=== PATIENT | male | born 1955 | race Caucasian/White ===

== ENCOUNTER 2020-03-02 01:05 | Inpatient (IN) | payer MEDICAID ==
[~2020-03-02] VITALS: Ht 167.6 cm; Wt 88.5 kg
--- NOTE | 2020-03-02 01:05 | NUR ---
PT BIBA FROM HOME FOR PSYCH EVAL. PER REPORT PT OFTEN WANDERS AROUND. NOTED FLIGHT OF IDEAS. PT AAOX2, VSS, RESPIRATIONS EVEN AND UNLABORED ON RA W/ NAD NOTED. PT CONNECTED TO THE MONITOR AND POX.
--- NOTE | 2020-03-02 01:25 | NUR ---
BLOOD COLLECTED AND SENT TO LAB
[2020-03-02 01:29] LABS: BASOPHILS % (AUTO) 0.6 % (0.0-2.0); EOSINOPHILS % (AUTO) 0.9 % (0.0-6.0); HEMATOCRIT 43 % (39-51); LYMPHOCYTES # (AUTO) 1.2 /CMM (0.8-4.8); LYMPHOCYTES % (AUTO) 16.3 % (20.0-44.0); MEAN CORPUSCULAR HGB CONC 33 g/dl (31.0-36.0); MEAN CORPUSCULAR VOLUME 87 fL (80-96); MONOCYTES # (AUTO) 0.6 /CMM (0.1-1.30); MONOCYTES % (AUTO) 7.6 % (2.0-12.0); NEUTROPHILS # (AUTO) 5.7 /CMM (1.8-8.9); NEUTROPHILS % (AUTO) 74.6 % (43.0-81.0); PLATELET COUNT (AUTO) 193 /CMM (150-450); WHITE BLOOD COUNT (AUTO) 7.6 K/uL (4.3-11.0)
--- NOTE | 2020-03-02 01:29 | NUR ---
NATALIA (SON) CONTACT INFORMATION: [phone]
--- NOTE | 2020-03-02 01:33 | NUR ---
OFFICER SPEAKING WITH PATIENT'S SON
--- NOTE | 2020-03-02 01:53 | NUR ---
LAB CALLED FOR COVID POSITIVE RESULTS.
[2020-03-02 01:58] LABS: ACETAMINOPHEN < 10 ug/ml (10-30); ALANINE AMINOTRANSFERASE 42 U/L (12-78); ALBUMIN 3.5 g/dL (3.4-5.0); ALKALINE PHOSPHATASE 121 U/L (46-116); ASPARTATE AMINOTRANSFERASE 21 U/L (15-37); BILIRUBIN,DIRECT 0.1 mg/dL (0.0-0.2); BILIRUBIN,TOTAL 0.1 mg/dL (0.2-1.0); CALCIUM, SERUM 8.5 mg/dL (8.5-10.1); CARBON DIOXIDE 25 mmol/L (21-32); CHLORIDE 103 mmol/L (98-107); CREATININE 0.7 mg/dL (0.6-1.3); GLUCOSE 230 mg/dL (74-106); POTASSIUM 4.2 mmol/L (3.5-5.1); SODIUM SERUM 137 mmol/L (136-145); TOTAL PROTEIN, SERUM 7.2 g/dL (6.4-8.2); UREA NITROGEN, BLOOD 15 mg/dL (7-18)
[2020-03-02 02:07] LABS: ALCOHOL, BLOOD < 3 mg/dL (0-0)
[2020-03-02] MEDS ORDERED: ONDANSETRON HCL/PF 4 MG/2 ML VIAL IVP PRN (02:30)
[2020-03-02] MEDS ORDERED: ONDANSETRON 4 MG TAB.RAPDIS SL PRN (02:30)
--- NOTE | 2020-03-02 02:44 | NUR ---
BED ASSIGNMENT 200
--- NOTE | 2020-03-02 02:47 | NUR ---
REPORT GIVEN TO SANDY HOOKS FOR LEROY
[2020-03-02] MEDS ORDERED: LORAZEPAM INJ 2 MG/ML VIAL ONE ×2 (02:53→03:00)
[2020-03-02] MEDS ORDERED: LORAZEPAM INJ 2 MG/ML VIAL IM ONE ×2 (03:00→22:00)
[2020-03-02] MEDS ORDERED: LORAZEPAM INJ 2 MG/ML VIAL IV ONE (03:00)
[2020-03-02] MEDS ORDERED: ALBUTEROL FS 2.5 MG/3 ML VIAL.NEB NEB PRN (03:30)
--- NOTE | 2020-03-02 03:59 | NUR ---
PATIENT TAKEN TO ASSIGNED ROOM FOR LEROY.
[2020-03-02 04:00] VITALS: BP 141/76
--- NOTE | 2020-03-02 04:10 | NUR ---
MS/NEUROLOGY PHYSICIAN NOTE Patient arrived at 0410 via gurney from ER. VS: BP 141/76 T98.9 P90 R20 [id number]% on room air. A/O x2, with flight of ideas. No JVD. Tongue midline, no tracheal deviation. CRP <3seconds. Brachial and pedal pulses 2+, symmetrical. Breathing even, clear, unlabored, no acute distress or SOB. PERRLA. Mucous membranes moist and pink. Lips intact. Skin warm, pink, dry, appropriate for ethnicity. IV site LAC 22g saline locked, patent and intact. No signs of redness or infiltration. Abdomen large, round, soft, non-tender. BS active. Patient is continent. Last BM was 03/02. Urine output clear, yellow, without difficulty. Sensations intact in all extremities. Full ROM achieved in all extremities, slunk skinner strength 5+. Patient has been oriented to room. Valuable and belongings documented. Bed in low position, bed alarm on, wheels locked, side rails up x2, call light within reach.
--- NOTE | 2020-03-02 06:39 | NUR ---
MS/RN CLOSING NOTE Patient is A/O x2, confused with flight of ideas. Breathing even, clear, unlabored, no acute distress or SOB. PERRLA. Skin warm, pink, dry, appropriate for ethnicity. IV site LAC 22g saline locked, patent and intact. No signs of redness or infiltration. Abdomen large, round, soft, non-tender. BS active. Patient is continent. Last BM was 03/02. Urine output clear, yellow, without difficulty. Sensations intact in all extremities. Bed in low position, bed alarm on, wheels locked, side rails up x2, call light within reach.
--- NOTE | 2020-03-02 07:39 | NUR ---
MS RN NOTES RECEIVED PT AWAKE, AMBULATORY, AGITATED STATING WANTS TO GO HOME AND DOESN'T WANT TO STAY IN THE HOSPITAL. PT INSISTING AND BY HI DOOR ARGUING WITH STAFFS. PT TOLERATING RA, WITH NO ACUTE RESPIRATORY DISTRESS NOTED. PT DENIES ANY PAIN OR DISCOMFORT JUST WANTED TO GO HOME. PIV LAC G22, NOT FLUSHED, PT REFUSED TO DO ANYTHING WITH HIM AT THIS TIME. PT REASSURED AND ENCOURAGED TO STAY CALM UNTIL THE DOCTORS COME AND EVALUATE HIM. WILL CONTINUE PLAN OF CARE.
[2020-03-02] MEDS: ENOXAPARIN SODIUM 40 MG/0.4 ML DISP.SYRIN SQ SCH (08:40)
--- NOTE | 2020-03-02 13:11 | NUR ---
RN NOTES SEEN BY ESSIE/SOURAV/. ORDERS PLACED BY AND CARRIED OUT.
[2020-03-02] MEDS: busPIRone 5 MG TABLET PO SCH ×2 (13:14→16:12)
[2020-03-02] MEDS: risperiDONE 1 MG TABLET PO SCH (16:12)
--- NOTE | 2020-03-02 19:02 | NUR ---
RN NOTES PT REMAINS RECEIVED PT AWAKE, AMBULATORY, DURING CHANGE OF SHIFT PT SEEN WITH AOC OPERATIONS INTELLIGENCE CHIEF AND LOCKED HIMSELF TO THE BATHROOM, SECURITY CAME AND ADDRESS THE ISSUEPT TOLERATING RA, WITH NO ACUTE RESPIRATORY DISTRESS NOTED. PT DENIES ANY PAIN OR DISCOMFORT JUST WANTED TO GO HOME. PIV LAC G22, NOT FLUSHED, PT REFUSED TO DO ANYTHING WITH HIM. NEEDS ATTENDED. CALL LIGHT KEPT WITHIN REACH. WILL CONTINUE PLAN OF CARE.
[2020-03-02] MEDS: LORAZEPAM 1 MG TABLET PO PRN (19:52)
--- NOTE | 2020-03-02 19:55 | NUR ---
MS2/RN PATIENT IS VERY AGITATED, COMBATIVE, GETTING OUT OF THE ROOM, PATIENT IS COVID-19 POSITIVE, ATIVAN 1 MG PO WAS GIVEN ORDERED. WILL MONITOR. IF MED INEFFECTIVE, WILL CALL AND INFORM DR. BENJAMIN FOR ORDER.
[2020-03-02 20:00] VITALS: BP 159/103
--- NOTE | 2020-03-02 20:32 | NUR ---
MS2/RN PATIENT IS STILL AGITATED, DOES NOT WANT TO GET INTO THE ROOM, NON STOP TALKING, MADE A CALL TO DR. BENJAMIN, LEFT MESSAGE. CALLED FUSE CUTTER, WHO CAME AND ESCORTED THE PATIENT TO THE ROOM.
--- NOTE | 2020-03-02 21:52 | NUR ---
MS2/RN PATIENT STILL AGITATED AND UNCONTROLLABLE BEHAVIOR, MADE A FOLLOW UP CALL TO DR. BENJAMIN, INFORMED HIM OF THE PATIENT'S PRESENT BEHAVIOR, WITH ORDER OF ZYPREXA 5 MG IM X1 AND ATIVAN 1 MG IM X1, WAS RECEIVED.
[2020-03-02] MEDS ORDERED: OLANZAPINE 10 MG VIAL IM ONE (22:00)
--- NOTE | 2020-03-02 22:00 | NUR ---
MS2/RN ZYPREXA IM AND ATIVAN IM ORDERED BY DR. BENJAMIN WERE NOT ADMINISTERED AT THIS TIME THE PATIENT IS ALREADY SLEEP. WILL GIVE WHEN THE PATIENT WAKES UP AND IF STILL AGITATED. WILL CONTINUE TO MONITOR.
[2020-03-03] VITALS: BP 166/97
[2020-03-03] MEDS: ACETAMINOPHEN 325 MG TABLET PO PRN (02:21)
--- NOTE | 2020-03-03 02:23 | NUR ---
MS2/RN PATIENT IS AWAKE, C/O HEAD ACHE, ASKED FOR TYLENOL, TYLENOL 650 MG PO WAS GIVEN ORDERED. WILL MONITOR.
--- NOTE | 2020-03-03 02:24 | NUR ---
MS2/RN CRTTS ATTEMPTED TO GET THE VITAL SIGNS BUT PATIENT REFUSE, PATIENT STILL REFUSED TELE BOX WELL. PATIENT REFUSED THE VITAL SIGNS AND TELE BOX AT 1999 LAST NIGHT.
[2020-03-03 04:00] VITALS: BP 128/69
--- NOTE | 2020-03-03 04:29 | NUR ---
PT WANTS TO SMOKE; NEW ORDER FOR NICOTINE PATCH RECIVED PT ASKING TO GO OUTSIDE TO SMOKE. PT INFORMED HOSPITAL IS NON SMOKING. PT REQUESTING NICOTINE PATCH. STATES HE SMOKES 1 CIGARETTE A DAY. PEARL KWON NP CONTACTED AND INFORMED PT REQUESTING NICOTINE PATCH. NEW ORDER FOR NICOTINE PATCH RECIEVED.
[2020-03-03] MEDS: NICOTINE PATCH (7MG) 7 MG PATCH.TD24 TD SCH ×2 (05:09→08:55)
--- NOTE | 2020-03-03 05:54 | NUR ---
MS2/RN PATIENT IS AWAKE, CALM NOW AND COMFORTABLE, AGREED TO HAVE VITAL SIGNS TAKEN, AGREE TO HAVE THE TELE MONITOR ON.
--- NOTE | 2020-03-03 07:28 | NUR ---
QA AUTOMATION ARCHITECT NOTES PATIENT IS AMBULATORY STANDING OUTSIDE HIS ROOM WHEN CHANGE OF SHIFT. A/O X 3. NO SIGNS OF DISTRESS IN ROOM AIR. IV L AC#22G L PATIENT DID NOT LET ME CHECK THE IV PATENCY. TELE WAS NOT ON, REFUSES TO HAVE THE TELE MONITOR ON. NO COMPLAIN OF PAIN AT THIS TIME. INFORMED PATIENT THAT HE NEEDS TO BE BACK IN HIS ROOM. SAFETY MEASURES ARE APPLIED. BED IS IN LOWEST LOCKED POSITION WITH SIDE RAILS UP X 2 FOR SAFETY. CALL LIGHT IS WITHIN REACH. WILL CONTINUE TO MONITOR.
[2020-03-03 08:00] VITALS: BP 142/93
[2020-03-03] MEDS: risperiDONE 1 MG TABLET PO SCH ×2 (08:55→17:30)
[2020-03-03] MEDS: busPIRone 5 MG TABLET PO SCH ×3 (08:55→17:30)
[2020-03-03] MEDS: ENOXAPARIN SODIUM 40 MG/0.4 ML DISP.SYRIN SQ SCH (08:56)
--- NOTE | 2020-03-03 08:57 | NUR ---
PATIENT REFUSED BLOOD DRAW AFTER SECOND ATTEMPT AND REFUSED LOVENOX. EDUCATED THE RISKS OF BENEFITS AND HE STILL REFUSED BOTH BLOOD DRAW AND LOVENOX.
[2020-03-03] MEDS: LORAZEPAM 1 MG TABLET PO PRN (09:37)
--- NOTE | 2020-03-03 09:40 | NUR ---
PATIENT AGITATED COMING OUT FROM HIS ROOM AGITATED. GAVE ATIVAN PRN SCHEDULED. NO SIGNS OF DISTRESS, WILL CONTINUE TO MONITOR.
--- NOTE | 2020-03-03 09:42 | NUR ---
SECURITY WAS CALLED. PATIENT REFUSED TO BACK TO HIS ROOM.
--- NOTE | 2020-03-03 11:53 | NUR ---
PATIENT CONTINUES TO BE AGITATED COMING OUT FROM HIS ROOM . SECURITY WAS CALLED AND CALLED DR. MALONEY ORDERED ATIVAN AND ZYPREXA IM ONE TIME. NOTED AND CARRIED OUT. WILL CONTINUE TO MONITOR.
[2020-03-03 12:00] VITALS: BP 127/69
[2020-03-03] MEDS ORDERED: OLANZAPINE 10 MG VIAL IM ONE (12:00)
[2020-03-03] MEDS ORDERED: LORAZEPAM INJ 2 MG/ML VIAL IM ONE (12:00)
--- NOTE | 2020-03-03 12:15 | NUR ---
UNABLE TO ADMINISTER MEDICATION ZYPREXA AND ATIVAN IM ONCE PATIENT WAS AGITATED AND REFUSING MEDICATION. MEDICATION WAS WASTED IN MED ROOM WITH SECOND RN FOR WITNESS. LUKAS DELGADO SECOND WITNESS. WILL CONTINUE TO MONITOR.
--- NOTE | 2020-03-03 12:40 | NUR ---
3RD ATTEMPT FOR BLOOD DRAW PATIENT REFUSED.
[2020-03-03] MEDS ORDERED: OLANZAPINE 10 MG VIAL IM PRN (13:30)
[2020-03-03 16:00] VITALS: BP 140/85
[2020-03-03 16:00] LABS: BASOPHILS % (AUTO) 0.7 % (0.0-2.0); HEMATOCRIT 42 % (39-51); HEMOGLOBIN 13.7 g/dL (13.5-17.5); LYMPHOCYTES # (AUTO) 1.3 /CMM (0.8-4.8); MEAN CORPUSCULAR HGB CONC 33 g/dl (31.0-36.0); MEAN CORPUSCULAR VOLUME 86 fL (80-96); MONOCYTES # (AUTO) 0.7 /CMM (0.1-1.30); MONOCYTES % (AUTO) 14.1 % (2.0-12.0); NEUTROPHILS # (AUTO) 2.9 /CMM (1.8-8.9); NEUTROPHILS % (AUTO) 57.2 % (43.0-81.0); PLATELET COUNT (AUTO) 177 /CMM (150-450); RED BLOOD CELL COUNT(AUTO) 4.89 MIL/uL (4.5-6.0); WHITE BLOOD COUNT (AUTO) 5.1 K/uL (4.3-11.0)
[2020-03-03 16:16] LABS: ALBUMIN 3.2 g/dL (3.4-5.0); BILIRUBIN,TOTAL 0.2 mg/dL (0.2-1.0); C-REACTIVE PROTEIN 0.8 mg/dL (0.0-0.9); CALCIUM, SERUM 8.7 mg/dL (8.5-10.1); CREATININE 0.7 mg/dL (0.6-1.3); POTASSIUM 3.9 mmol/L (3.5-5.1); TOTAL PROTEIN, SERUM 6.7 g/dL (6.4-8.2)
--- NOTE | 2020-03-03 16:40 | NUR ---
LACTIC ACID 2.5 JAKE MINER IS AWARE NO NEW ORDERS AT THIS TIME WILL CONTINUE TO MONITOR.
--- NOTE | 2020-03-03 19:21 | NUR ---
HEMSTITCHING MACHINE OPERATOR CLOSING NOTES A/O X 3. NO SIGNS OF DISTRESS IN ROOM AIR. IV L AC#22G PATIENT DID NOT LET ME CHECK THE IV PATENCY. TELE WAS NOT ON, REFUSES TO HAVE THE TELE MONITOR ON. NO COMPLAIN OF PAIN AT THIS TIME. PATIENT REMAINED STABLE THROUGH OUT SHIFT. PATIENT KEPT CLEAN AND DRY. ALL NEEDS, CARE, TREATMENT AND MEDICATIONS ADMINISTERED ANTICIPATED PER ORDER. SAFETY MEASURES ARE APPLIED. BED IS IN LOWEST LOCKED POSITION WITH SIDE RAILS UP X 2 FOR SAFETY. CALL LIGHT IS WITHIN REACH. WILL ENDORSE TO THE COWLMAN NURSE.
[2020-03-03 20:00] VITALS: BP 155/87
--- NOTE | 2020-03-03 20:00 | NUR ---
MS RN NOTE: Patient in bed sleeping but easily aroused. Patient breathing even and unlabored, no SOB or acute respiratory distress noted. Patient uncooperative. Patient removed monitor worker previous shift but asked if I can put it back, patient refused. Patient IV access left AC 22 gauge, patient refused flush. Patient refused physical assessment. Safety precaution in place, bed is in the lowest level, bed is locked, alarm is on, side rails x2 are up, and call light is within reach. Will continue to monitor.
[2020-03-04] VITALS: BP 149/81
[2020-03-04 04:00] VITALS: BP 154/94
--- NOTE | 2020-03-04 07:30 | NUR ---
E COMMERCE SPECIALIST NOTES PT AWAKE, ALERT AND ORIENTED, AMBULATORY IN HIS ROOM, NO COMPLAINT OF PAIN OR ANY DISCOMFORT, RESPIRATIONS NORMAL, ON ROOM AIR, COMPLIANT WITH MEDS, NEEDS ATTENDED, VERBALIZED THAT HE WANTS TO GO HOME BECAUSE HE HAS WORK TODAY.
[2020-03-04 08:00] VITALS: BP 144/89
[2020-03-04] MEDS: NICOTINE PATCH (7MG) 7 MG PATCH.TD24 TD SCH (08:36)
[2020-03-04] MEDS: risperiDONE 1 MG TABLET PO SCH ×2 (08:37→16:28)
[2020-03-04] MEDS: busPIRone 5 MG TABLET PO SCH ×3 (08:37→16:28)
[2020-03-04] MEDS: ENOXAPARIN SODIUM 40 MG/0.4 ML DISP.SYRIN SQ SCH (08:44)
[2020-03-04 12:00] VITALS: BP 131/82
--- NOTE | 2020-03-04 12:43 | NUR ---
CONTROL AND RECOVERY COMBAT RESCUE NOTES PT AWAKE, SITTING IN BED, AWAKE, ALERT, AMBULATES WITH STEADY GAIT, COMPLIANT WITH MEDS, IV LINE ACCIDENTALLY PULLED OUT, OFFERED TO RESTART IV LINE, PT REFUSED FOR NOW, PT ALSO REFUSES TO BE TELE MONITORING BOX, NEEDS ATTENDED.
[2020-03-04 16:00] VITALS: BP 158/88
--- NOTE | 2020-03-04 18:41 | NUR ---
FERRY HAND NOTES PT IN BED, ASLEEP, EASY TO AROUSE, ALERT AND ORIENTED, NO COMPLAINT AT THIS TIME, NOT IN DISTRESS, COMPLIANT WITH MEDS, SEEN BY DR. JOSEPH, PT REFUSED IV REINSERTION AND TELE BOX MONITORING, MD AWARE, PT AMBULATES WITH STEADY GAIT TO THE BATHROOM, TOLERATES CURRENT DIET, NEEDS ATTENDED.
--- NOTE | 2020-03-04 19:05 | NUR ---
pit furnace operator notes received patient in bed sleeping easily arousable, awake alert and oriented x 3, respirations even and unlabored with equal rise and fall of chest,denies any pain or discomfort at this time,refuses court recording monitor and iv site despite education. oriented to staff and call light and kept within reach, safety precautions rendered low bed and locked, all needs attended at this time, will continue to monitor.
[2020-03-04 20:00] VITALS: BP 163/98
--- NOTE | 2020-03-04 20:10 | NUR ---
hospital internship notes noted 1999 vs at 163/98, hr 87. attempted to reassess blood pressure for accurate reading patient refused x 3 despite risks and benefit and education, stated " no im okay leave me alone i want to sleep". no distress present, will continue to monitor and attempt to reassess blood pressure.
[2020-03-05] VITALS (8 sets, daily range): BP systolic 128–165; BP diastolic 77–87
--- NOTE | 2020-03-05 00:16 | NUR ---
sports broadcasting internship notes blood pressure reassessed noted 165/87, hr 66. made patient aware of elevated blood pressure. states " i feel good". educated patient. hospitalist made aware flavia, new orders noted and read back for clonidine 0.1mg q8hr prn sbp above 160.
[2020-03-05] MEDS ORDERED: CLONIDINE HCL 0.1 MG TABLET PO PRN (00:30)
--- NOTE | 2020-03-05 06:22 | NUR ---
project coordinator rn closing notes patient in bed awake alert and oriented x 3, respirations even and unlabored with equal rise and fall of chest,denies any pain or discomfort at this time,refuses quality assurance monitor refused skin assessments and iv site despite education. call light kept within reach, safety precautions rendered low bed and locked, snacks, fluids and toileting offered, all needs attended at this time, will continue to monitor and endorse to next shift.
--- NOTE | 2020-03-05 07:30 | NUR ---
CELLO TEACHER NOTES PATIENT RECEIVED IN BED, AWAKE, ALERT AND ORIENTED X 3. PATIENT ON ROOM AIR WITH NO SIGNS OF RESPIRATORY DISTRESS AT THIS TIME, WITH EVEN NON-LABORED BREATHING. PATIENT PRESENTS WITH NO SIGNS OF PAIN OR DISCOMFORT AT THIS TIME. PATIENT REFUSING IV ACCESS AT THIS TIME, MD AWARE. PATIENT ALSO REFUSING FIELD HOCKEY AND LACROSSE COACH. PATIENT REFUSING SKIN ASSESSMENT AT THIS TIME. ISOLATION PRECAUTIONS REMAINING, DUE TO COVID-19. SAFETY PRECAUTIONS IMPLEMENTED WITH BED LOCKED, BED IN THE LOWEST POSITION, BILATERAL SIDE RAILS UP AND CALL LIGHT WITHIN EASY REACH OF THE PATIENT. WILL CONTINUE TO MONITOR PATIENT.
[2020-03-05] MEDS: ENOXAPARIN SODIUM 40 MG/0.4 ML DISP.SYRIN SQ SCH (09:03)
[2020-03-05] MEDS: busPIRone 5 MG TABLET PO SCH ×3 (09:04→16:25)
[2020-03-05] MEDS: risperiDONE 1 MG TABLET PO SCH ×2 (09:04→16:25)
[2020-03-05] MEDS: NICOTINE PATCH (7MG) 7 MG PATCH.TD24 TD SCH (09:07)
[2020-03-05] MEDS ORDERED: ALBUTEROL SULFATE 8 GM HFA.AER.AD IH PRN (10:00)
[2020-03-05] MEDS ORDERED: DEXTROSE 50%-WATER 50 ML DISP.SYRIN IV PRN (13:00)
[2020-03-05] MEDS: BLOOD SUGAR DIAGNOSTIC 1 EACH STRIP IN SCH ×2 (16:39→22:02)
--- NOTE | 2020-03-05 16:39 | NUR ---
INFORMATION SCIENTIST NOTES PATIENT'S BLOOD SUGAR 163, PER SLIDING SCALE PROTOCOL, 3 UNITS OF INSULIN NEEDED TO BE ADMINISTERED, PATIENT REFUSED INSULIN, EDUCATED THE IMPORTANCE AND BENEFITS OF MEDICATION MULTIPLE TIMES, PATIENT KEPT REFUSING. WILL CONTINUE TO MONITOR PATIENT.
--- NOTE | 2020-03-05 18:32 | NUR ---
OBJECTIVE C DEVELOPER NOTES PATIENT IN BED RESTING COMFORTABLY, ALERT AND ORIENTED X 3. PATIENT ON ROOM AIR WITH NO SIGNS OF RESPIRATORY DISTRESS WITH EVEN NON-LABORED BREATHING, AND NO SOB NOTED AT THIS TIME. PATIENT REFUSING BRUSH MACHINE SETTER AT THIS TIME. PATIENT SKIN KEPT CLEAN AND DRY, NO IV ACCESS MD AWARE. PATIENT KEPT REFUSING LABS TO BE DRAWN. EDUCATED THE IMPORTANCE AND PATIENT KEPT REFUSING. PATIENT PRESENTING WITH NO PAIN OR DISCOMFORT AT THIS TIME. MET ALL OF PATIENT'S NEEDS. SAFETY PRECAUTIONS IMPLEMENTED WITH BED LOCKED, BED IN THE LOWEST POSITION, BILATERAL SIDE RAILS UP, CALL LIGHT WITHIN EASY REACH, AND WILL ENDORSE PLAN OF CARE TO UPCOMING RN.
--- NOTE | 2020-03-05 20:04 | NUR ---
MS/RN OPENING NOTE Patient awake in bed, A/O x2-3, calm, ambulatory. Patient refused tele monitor at this time. No JVD. Tongue midline, no tracheal deviation. CRP <3seconds. Brachial and pedal pulses 2+, symmetrical. Breathing even, clear, unlabored, no acute distress or SOB. Skin warm, pink, dry, appropriate for ethnicity. Patient refused IV access. Abdomen large, round, soft, non-tender. BS active. Patient is continent. Urine output clear, yellow, without difficulty. Bed in low position, bed alarm on, wheels locked, side rails up x2, call light within reach.
[2020-03-05] MEDS: INSULIN REGULAR, HUMAN 100 UNIT/ML 3 ML VIAL SQ PRN (21:57)
[2020-03-06] VITALS: BP 135/92
--- NOTE | 2020-03-06 04:55 | NUR ---
TELE/RN NOTE Patient c/o constipation for 3 days. Hospitalist notified. New medication order received for Milk of Magnesia 30ml once PRN. Order verified. Will continue to monitor.
[2020-03-06] MEDS ORDERED: MAGNESIUM HYDROXIDE 30 ML UDC PO PRN (05:00)
[2020-03-06 05:01] VITALS: BP 150/96
--- NOTE | 2020-03-06 06:06 | NUR ---
TELE/RN OPENING NOTE Patient awake in bed, A/O x2-3, calm, ambulatory. Patient refused tele monitor at this time. Brachial and pedal pulses 2+, symmetrical. Breathing even, clear, unlabored, no acute distress or SOB. Skin warm, pink, dry, appropriate for ethnicity. Patient refused IV access. BS active. Patient is continent. Urine output clear, yellow, without difficulty. Bed in low position, bed alarm on, wheels locked, side rails up x2, call light within reach.
--- NOTE | 2020-03-06 06:07 | NUR ---
TELE/RN NOTE Patient refused morning labs. Hospitalist notified. Patient stated he wanted to go home. Will continue to monitor.
[2020-03-06] MEDS: BLOOD SUGAR DIAGNOSTIC 1 EACH STRIP IN SCH ×4 (06:47→21:22)
[2020-03-06 08:00] VITALS: BP 132/91
--- NOTE | 2020-03-06 08:00 | NUR ---
TELE/RN OPENING NOTE Patient awake in bed, A/O x2-3, calm, ambulatory. Patient has been refusing tele monitor and AM blood draw since last night inspite of explaining the risks and benefits. Brachial and pedal pulses 2+, symmetrical. Breathing even, clear, unlabored, no acute distress or SOB. Skin warm, pink, dry, appropriate for ethnicity. Patient refused IV access. BS active. Patient is continent with BRP. Urine output clear, yellow, without difficulty. Bed in low position, bed alarm on, wheels locked, side rails up x2, call light within reach.
[2020-03-06] MEDS: busPIRone 5 MG TABLET PO SCH ×3 (08:48→17:22)
[2020-03-06] MEDS: risperiDONE 1 MG TABLET PO SCH ×2 (08:48→17:24)
[2020-03-06] MEDS: ACETAMINOPHEN 325 MG TABLET PO PRN (08:48)
[2020-03-06] MEDS: NICOTINE PATCH (7MG) 7 MG PATCH.TD24 TD SCH (08:48)
[2020-03-06] MEDS: ENOXAPARIN SODIUM 40 MG/0.4 ML DISP.SYRIN SQ SCH ×2 (08:48→09:00)
--- NOTE | 2020-03-06 09:15 | NUR ---
pt refused lovenox inspite of explaining risks and benefits. Discarded open Lovenox in the medicine dispenser box as witnessed by co-RN,Seema.
[2020-03-06 12:00] VITALS: BP 111/71
[2020-03-06] MEDS: INSULIN REGULAR, HUMAN 100 UNIT/ML 3 ML VIAL SQ PRN (13:19)
--- NOTE | 2020-03-06 15:00 | NUR ---
PATIENT HAS BEEN REFUSING AM BLOOD DRAW,TELE MONITOR AND IV HEPLOCK INSERTION SINCE LAST NIGHT.NOTIFIED DR QUINONEZ AND MADE AWARE.
--- NOTE | 2020-03-06 15:03 | NUR ---
NICOL was notified by Field Kiln Burner Brielle regarding patient's family wanting the patient to be transferred to a psychiatric facility. NICOL contacted son Jez [phone] to verify this plan with patient's son and . Jez (son) reported that the patient does have a history of mental health and patient's and son would feel comfortable if the patient would be transferred to a psychiatric facility. NICOL informed patient's son that SW needs to confirm voluntary status with the patient when he is more alert and oriented. Patient's son in agreement to this plan. NICOL remains available for all needs regarding this patient.
[2020-03-06 16:00] VITALS: BP 122/86
--- NOTE | 2020-03-06 18:18 | NUR ---
PT WAS COMPLIANT WITH MEDS EXCEPT LOVENOX.PT REFUSED LAB DRAW,TELE MONITOR AND HEPLOCK INSERTION UP TO THIS TIME.PT WAS CALM IN HIS ROOM AND NO SI/HI AT THIS TIME.PT WANTING TO GO HOME AND EXPLAINED THAT HE STILL HAS TO STAY AND WAIT FOR DOCTOR'S DECISION TO DISCHARGE HIM.
--- NOTE | 2020-03-06 19:39 | NUR ---
UTILIZATION MANAGEMENT NURSE NOTES PATIENT IN BED, ASLEEP, ALERT AND ORIENTED X3. BREATHING EVEN AND UNLABORED ON ROOM AIR. SHOWS NO SIGNS OF ACUTE RESPIRATORY DISTRESS. NO ACUTE PAIN. PT REFUSED IV, MD AWARE. SAFETY PRECAUTIONS IN PLACE. BED IN LOWEST POSITION, LOCKED, AND WILL CONTINUE TO MONITOR.
[2020-03-06 20:00] VITALS: BP 137/76
[2020-03-07] VITALS: BP 141/76
[2020-03-07 04:00] VITALS: BP 122/87
[2020-03-07] MEDS: BLOOD SUGAR DIAGNOSTIC 1 EACH STRIP IN SCH ×4 (06:34→22:43)
[2020-03-07] MEDS: INSULIN REGULAR, HUMAN 100 UNIT/ML 3 ML VIAL SQ PRN ×2 (06:34→12:21)
--- NOTE | 2020-03-07 06:43 | NUR ---
PERMIT REVIEW ASSISTANT NOTES PATIENT IN BED, AWAKE, ALERT AND ORIENTED X3. BREATHING EVEN AND UNLABORED ON ROOM AIR. SHOWS NO SIGNS OF ACUTE RESPIRATORY DISTRESS. NO ACUTE PAIN. PT REFUSED IV, MD AWARE. REFUSED 0730 INSULIN COVERAGE. ALL DUE MEDICATIONS GIVEN. SAFETY PRECAUTIONS IN PLACE. BED IN LOWEST POSITION, LOCKED, AND WILL ENDORSE TO ONCOMING NURSE.
--- NOTE | 2020-03-07 07:30 | NUR ---
RN OPENING NOTE THE PATIENT IS RECEIVED IN BED. PATIENT IS ALERT AND ORIENTED X3. DENIES PAIN. IN ROOM AIR AND DENIES SOB. RESPIRATION REGULAR AND UNLABORED. PATIENT REFUSES TELE BOX AND PER PM SHIFT MD IS AWARE. ALSO, THE PATIENT DOES NOT HAVE AN IV LINE, REFUSES AND THE MD IS AWARE PER PM SHIFT. BED LOW AND LOCKED. SIDE RAILS UP X2. CALL LIGHT WITHIN REACH. WILL CONTINUE TO MONITOR.
[2020-03-07 08:00] VITALS: BP 158/94
[2020-03-07] MEDS: NICOTINE PATCH (7MG) 7 MG PATCH.TD24 TD SCH (08:55)
[2020-03-07] MEDS: busPIRone 5 MG TABLET PO SCH ×3 (08:55→17:34)
[2020-03-07] MEDS: risperiDONE 1 MG TABLET PO SCH ×2 (08:55→17:34)
[2020-03-07] MEDS: ENOXAPARIN SODIUM 40 MG/0.4 ML DISP.SYRIN SQ SCH (09:00)
--- NOTE | 2020-03-07 09:33 | NUR ---
RN REFUSED LOVENOX PATIENT REFUSED LOVENOX DUE AT 0900. EXPLAINED RISKS AND BENEFITS MULTIPLE TIMES BUT THE PATIENT STILL REFUSED.
--- NOTE | 2020-03-07 18:41 | NUR ---
RN CLOSING NOTE THE PATIENT IS ALERT AND ORIENTED X3. IN ROOM AIR AND OXYGEN SATURATION IS AT 97%. DENIES SOB. RESPIRATION REGULAR AND UNLABORED. DENIES PAIN. THE PATIENT IS IN NO APPARENT DISTRESS. PATIENT REFUSES TELE BOX AND IV ACCESS AND CHANNEL ROUGHER CRISTIANO IS AWARE. ALSO, CHANNEL ROUGHER CRISTIANO IS MADE AWARE THAT THE PATIENT REFUSED SCHEDULED LOVENOX DURING THE SHIFT. BED LOW AND LOCKED. SIDE RAILS UP X2. CALL LIGHT WITHIN REACH. WILL ENDORSE TO RIBBON LAPPER TENDER.
--- NOTE | 2020-03-07 19:30 | NUR ---
PEDIATRIC SPEECH LANGUAGE PATHOLOGIST OPENING NOTES PATIENT AWAKE AND SITTING IN CHAIR NEXT TO BEDSIDE. A/OX3. ON RA; NO S/S OF ACUTE RESPIRATORY DISTRESS; BREATHING IS EVEN AND UNLABORED. NO C/O PAIN AT THIS TIME. PATIENT REFUSING TO WEAR TELE MONITOR AND REFUSING IV ACCESS; PER DAY SHIFT RN MD AWARE. SAFETY MEASURES IN PLACE AND PATIENT'S NEEDS MET. BED LOCKED, SIDE RAILS X2, CALL LIGHT WITHIN REACH. WILL CONTINUE TO MONITOR.
[2020-03-07 20:00] VITALS: BP 116/76
[2020-03-08] VITALS: BP 120/60
[2020-03-08] MEDS: LORAZEPAM 1 MG TABLET PO PRN (01:21)
[2020-03-08 04:00] VITALS: BP 142/89
[2020-03-08] MEDS: BLOOD SUGAR DIAGNOSTIC 1 EACH STRIP IN SCH ×4 (06:24→21:58)
--- NOTE | 2020-03-08 07:07 | NUR ---
TUB PULLER CLOSING NOTES PATIENT AWAKE IN BED. A/OX3. ON RA; NO S/S OF ACUTE RESPIRATORY DISTRESS; BREATHING IS EVEN AND UNLABORED. NO C/O PAIN. PATIENT REFUSING TELE MONITOR AND IV ACCESS. SAFETY MEASURES IN PLACE AND PATIENT'S NEEDS MET. BED LOCKED, SIDE RAILS X2, CALL LIGHT WITHIN REACH. WILL ENDORSE TO DAY SHIFT RN PLAN OF CARE.
--- NOTE | 2020-03-08 07:24 | NUR ---
ms rn received on bed, awake,alert,oriented x3,not in any form of distress, respirations even and unlabored, no sob noted, lungs are clear,abdomen soft,positive bowel sounds, denies pain at this time, patient has no iv heplock, patient refused per weight shifter.no distress noted.
[2020-03-08 08:00] VITALS: BP 153/88
--- NOTE | 2020-03-08 08:50 | NUR ---
ms [place] breakfast served, due meds given, compliant w/ meds.
[2020-03-08] MEDS: busPIRone 5 MG TABLET PO SCH ×3 (09:14→17:56)
[2020-03-08] MEDS: risperiDONE 1 MG TABLET PO SCH ×2 (09:14→17:56)
[2020-03-08] MEDS: NICOTINE PATCH (7MG) 7 MG PATCH.TD24 TD SCH (09:15)
[2020-03-08] MEDS: ENOXAPARIN SODIUM 40 MG/0.4 ML DISP.SYRIN SQ SCH (09:21)
--- NOTE | 2020-03-08 12:30 | NUR ---
ms rn patient always come and wants to go home today, texted Milton luna, waiting for him to reply.
[2020-03-08] MEDS: INSULIN REGULAR, HUMAN 100 UNIT/ML 3 ML VIAL SQ PRN ×2 (12:52→21:30)
--- NOTE | 2020-03-08 16:00 | NUR ---
ms won luna came but no order for d/c today, maybe tomorrow.
--- NOTE | 2020-03-08 17:00 | NUR ---
ms rn patient refused blood sugar, really wants to go home, sleeping at this time.
--- NOTE | 2020-03-08 18:19 | NUR ---
ms rn on bed, no distress noted.
--- NOTE | 2020-03-08 19:15 | NUR ---
HOME CARE CHAPLAIN OPENING NOTES: RECEIVED PATIENT IN BED, ASLEEP. CALL LIGHT WITHIN REACH. BED IN LOWEST AND LOCKED POSITION.
[2020-03-08 20:00] VITALS: BP 127/82
[2020-03-09] VITALS: BP 128/81
[2020-03-09 04:00] VITALS: BP 125/92
--- NOTE | 2020-03-09 06:28 | NUR ---
SPEECH PROFESSOR CLOSING NOTES: PATIENT IN BED, AWAKE, A/O X3. NO S/S OF DISTRESS NOTED. NO COMPLAIN OF PAIN. AMBULATING INSIDE THE ROOM. CALL LIGHT WITHIN REACH. BED IN LOWEST AND LOCKED POSITION. REFUSED THE LAB DRAW THIS MORNING, TALKED TO THE PATIENT AND EXPLAINED, PATIENT STILL REFUSED, STATES" NOT NOW, LATER AFTER BREAKFAST". WILL ENDORSE TO THE NEXT SHIFT FOR FOLLOW UP .
[2020-03-09] MEDS: INSULIN REGULAR, HUMAN 100 UNIT/ML 3 ML VIAL SQ PRN ×2 (07:04→21:42)
[2020-03-09] MEDS: BLOOD SUGAR DIAGNOSTIC 1 EACH STRIP IN SCH ×4 (07:20→21:41)
--- NOTE | 2020-03-09 07:41 | NUR ---
AN/SQQ 89(V)15 SONAR SYSTEM JOURNEYMAN NOTE PATIENT IN BED RESTING COMFORTABLY. PATIENT IN NO ACUTE DISTRESS. NO SOB NOTED. PATIENT BREATHING IS EVEN AND UNLABORED. PATIENT REFUSING TELE MONITORING. PATIENT NOTED WITH NO IV ACCESS, PATIENT IS REFUSING IV ACCESS PER PM SHIFT. PATIENT HOB IS ELEVATED. PATIENT SAFETY PRECAUTIONS IN PLACE. PATIENT BED ALARM IS ON. PATIENT BED IS LOCKED AND IN LOWEST POSITION. CALL LIGHT WITHIN REACH. WILL CONTINUE TO MONITOR.
[2020-03-09 08:00] VITALS: BP 124/78
[2020-03-09] MEDS: busPIRone 5 MG TABLET PO SCH ×3 (08:32→16:27)
[2020-03-09] MEDS: NICOTINE PATCH (7MG) 7 MG PATCH.TD24 TD SCH (08:32)
[2020-03-09] MEDS: risperiDONE 1 MG TABLET PO SCH ×2 (08:32→16:27)
[2020-03-09] MEDS: ENOXAPARIN SODIUM 40 MG/0.4 ML DISP.SYRIN SQ SCH (08:34)
[2020-03-09 10:38] LABS: BASOPHILS % (AUTO) 0.5 % (0.0-2.0); EOSINOPHILS % (AUTO) 1.1 % (0.0-6.0); HEMATOCRIT 45 % (39-51); HEMOGLOBIN 14.8 g/dL (13.5-17.5); LYMPHOCYTES # (AUTO) 2.1 /CMM (0.8-4.8); LYMPHOCYTES % (AUTO) 36.9 % (20.0-44.0); MEAN CORPUSCULAR HGB CONC 33 g/dl (31.0-36.0); MEAN CORPUSCULAR VOLUME 85 fL (80-96); MONOCYTES # (AUTO) 0.5 /CMM (0.1-1.30); MONOCYTES % (AUTO) 8.2 % (2.0-12.0); NEUTROPHILS % (AUTO) 53.3 % (43.0-81.0); PLATELET COUNT (AUTO) 166 /CMM (150-450); RED BLOOD CELL COUNT(AUTO) 5.23 MIL/uL (4.5-6.0); WHITE BLOOD COUNT (AUTO) 5.7 K/uL (4.3-11.0)
[2020-03-09 10:52] LABS: CALCIUM, SERUM 8.8 mg/dL (8.5-10.1); CREATININE 0.7 mg/dL (0.6-1.3); PHOSPHORUS 3.3 mg/dL (2.5-4.9); POTASSIUM 3.9 mmol/L (3.5-5.1)
--- NOTE | 2020-03-09 12:15 | NUR ---
LEAD FIRE PROTECTION ENGINEER NOTE PATIENT BLOOD SUGAR IS 108. NO INSULIN COVERAGE NEEDED PER PROTOCOL.
[2020-03-09 16:00] VITALS: BP 119/92
--- NOTE | 2020-03-09 16:35 | NUR ---
BURR MILL OPERATOR NOTE PATIENT BLOOD SUGAR IS 118. NO INSULIN COVERAGE NEEDED PER PROTOCOL. PATIENT TEMPERATURE 99.5F, IMPLEMENTED COOLING MEASURES.
--- NOTE | 2020-03-09 19:07 | NUR ---
ASSOCIATE MERCHANDISER NOTE PATIENT IN BED RESTING COMFORTABLY. PATIENT IN NO ACUTE DISTRESS. NO SOB NOTED. PATIENT BREATHING IS EVEN AND UNLABORED. PATIENT REFUSING TELE MONITORING. PATIENT NOTED WITH NO IV ACCESS, PATIENT IS REFUSING IV ACCESS. EDUCATED RISK VS BENEFITS. PATIENT CONTINUED TO REFUSE. MD AWARE. PATIENT HOB IS ELEVATED. PATIENT SAFETY PRECAUTIONS IN PLACE. PATIENT BED ALARM IS ON. PATIENT BED IS LOCKED AND IN LOWEST POSITION. CALL LIGHT WITHIN REACH. WILL ENDORSE CARE TO PM SHIFT FOR LEROY.
--- NOTE | 2020-03-09 19:55 | NUR ---
BUSINESS SUPPORT SPECIALIST NOTES RECEIVED PATIENT IN BED RESTING COMFORTABLY. PATIENT IN NO ACUTE DISTRESS. NO SOB NOTED. PATIENT BREATHING IS EVEN AND UNLABORED. PATIENT REFUSING TELE MONITORING. PER AM NURSE. PATIENT NOTED WITH NO IV ACCESS, PATIENT IS REFUSING IV ACCESS. EDUCATED RISK VS BENEFITS. MD AWARE. PATIENT HOB IS ELEVATED. PATIENT SAFETY PRECAUTIONS IN PLACE. PATIENT BED ALARM IS ON. PATIENT BED IS LOCKED AND IN LOWEST POSITION. CALL LIGHT WITHIN EASY REACH. ALL NEEDS ANTICIPATED. WILL CONTINUE TO MONITOR ACCORDINGLY.
[2020-03-09 22:42] VITALS: BP 148/98
[2020-03-10] MEDS: BLOOD SUGAR DIAGNOSTIC 1 EACH STRIP IN SCH ×4 (06:49→22:09)
[2020-03-10] MEDS: INSULIN REGULAR, HUMAN 100 UNIT/ML 3 ML VIAL SQ PRN ×2 (06:50→22:09)
--- NOTE | 2020-03-10 07:23 | NUR ---
BINDERY MACHINE FEEDER OFFBEARER NOTES ALL NEEDS ATTENDED AND MET. PATIENT IN BED RESTING COMFORTABLY. PATIENT IN NO ACUTE DISTRESS. NO SOB NOTED. PATIENT BREATHING IS EVEN AND UNLABORED. PATIENT REFUSING TELE MONITORING. PATIENT NOTED WITH NO IV ACCESS, PATIENT IS REFUSING IV ACCESS. EDUCATED RISK VS BENEFITS. MD AWARE. PATIENT HOB IS ELEVATED. PATIENT SAFETY PRECAUTIONS IN PLACE. PATIENT BED ALARM IS ON. PATIENT BED IS LOCKED AND IN LOWEST POSITION. CALL LIGHT WITHIN EASY REACH. ALL NEEDS ANTICIPATED. ENDORSED TO AM NURSE FOR CONTINUITY OF CARE.
--- NOTE | 2020-03-10 07:51 | NUR ---
PILOT CONTROL OPERATOR OPENING NOTES RECEIVED PATIENT IN BED, ASLEEP. PATIENT ON ROOM AIR; BREATHING IS EVEN AND UNLABORED; NO SOB NOTED AT THIS TIME. PATIENT REFUSES TELE MONITORING AND IV ACCESS WELL; MD IS AWARE. NO COMPLAINS OF PAIN AT THIS TIME. SAFETY PRECAUTIONS IN PLACE; BED IN LOW POSITION AND LOCKED, RAILS UP X2, CALL LIGHT WITHIN REACH. WILL CONTINUE TO MONITOR PATIENT.
[2020-03-10] MEDS: risperiDONE 1 MG TABLET PO SCH ×2 (08:39→17:25)
[2020-03-10] MEDS: NICOTINE PATCH (7MG) 7 MG PATCH.TD24 TD SCH (08:39)
[2020-03-10] MEDS: busPIRone 5 MG TABLET PO SCH ×3 (08:39→17:25)
[2020-03-10] MEDS: ENOXAPARIN SODIUM 40 MG/0.4 ML DISP.SYRIN SQ SCH (08:40)
--- NOTE | 2020-03-10 18:39 | NUR ---
DATA ARCHITECT MANAGER CLOSING NOTES PATIENT IN BED, ASLEEP. DURING THE DAY PATIENT AWAKE, WATCHING TV AND A/O X3; ABLE TO AMBULATE. PATIENT ON ROOM AIR; BREATHING IS EVEN AND UNLABORED; NO SOB NOTED DURING THE DAY. PATIENT REFUSES TELE MONITORING AND IV ACCESS WELL; MD IS AWARE. NO COMPLAINS OF PAIN DURING THE DAY. ALL NEEDS ATTENDED DURING THE DAY. SAFETY PRECAUTIONS IN PLACE; BED IN LOW POSITION AND LOCKED, RAILS UP X2, CALL LIGHT WITHIN REACH. WILL ENDORSE TO OPTOMETRIST NURSE.
--- NOTE | 2020-03-10 21:00 | NUR ---
RN NOTES: RECEIVED RPEORT FROM LUKAS DELGADO AT 1905. PT A/O X3. REFUSED CARE, REFUSED IV INSERTION, NON COMPLIANT PER REPORT MD AWARE. PT ALSO NOT FOLLOWING COVID GUIDELINES PROTOCOL. STATED HE WOULD LIKE TO GO HOME. EDUCATION PROVIDED TO PT. AT 2130 WAS THEN APPROACHED BY LAB STATED PT REFUSED BLOOD DRAW. COUNSELLING PROVIDED TO PT. REMAINS TO REFUSED. SNACKS PROVIDED TO PT. STATED LEAVE HIM ALONE. SAFETY PRECAUTIONS FOR FALL INITIATED, CALL LIGHT IN REACH, WILL CONTINUE MONITORING PT.
[2020-03-10 21:43] VITALS: BP 137/78
[2020-03-11 00:30] VITALS: BP 125/84
[2020-03-11 04:00] VITALS: BP 146/66
[2020-03-11] MEDS: INSULIN REGULAR, HUMAN 100 UNIT/ML 3 ML VIAL SQ PRN (06:21)
[2020-03-11] MEDS: BLOOD SUGAR DIAGNOSTIC 1 EACH STRIP IN SCH ×4 (06:22→22:08)
--- NOTE | 2020-03-11 06:22 | NUR ---
ACCU CHECK: BLOOD SUGAR CHECK PERFORMED RESULT OBTAINED IS 186, 3 UNITS OF INSULIN ADMINISTERED PER SLIDING SCALE.
--- NOTE | 2020-03-11 06:23 | NUR ---
RN NOTES: PT REFUSED TO HAVE BLOOD DRAW AT THIS TIME, EDUCATION PROVIDED TO PT REGARDING IMPORTANCE OF COMPLIANCE AND MONITORING. PT STATED TO DO BLOOD DRAW AFTER BREAKFAST.
--- NOTE | 2020-03-11 07:01 | NUR ---
END OF SHIFT REPORT: PT REMAINS TO REFUSE BLOOD DRAW, AWARE, REFUSED IV INSERTION. SNACKS PROVIDED. REMAINS AFEBRILE. NON COMPLIANT. REFUSED TELE MONITORING. MD AWARE. SAFETY PRECAUTIONS FOR FALL REMAINS ENGAGED, CALL LIGHT IN REACH, WILL ENDORSE TO DAY RN FOR LEROY.
--- NOTE | 2020-03-11 07:30 | NUR ---
TELE/RN OPENING NOTE Patient resting in bed, A&O x 3. No complaints of pain/discomfort at this time. Breathing even and non-labored on RA, no SOB noted. No cardiac distress noted. On tele monitor, reading SR 85 No IV access noted, patient refused iv insertion. Explained its risks and benefits, insists on refusal. Sensation from all peripheral extremities intact. Bed locked to its lowest position, side rails x 2 up, call light in hand. Will continue with current medical management.
[2020-03-11 08:00] VITALS: BP 122/80
[2020-03-11] MEDS: NICOTINE PATCH (7MG) 7 MG PATCH.TD24 TD SCH (08:13)
[2020-03-11] MEDS: busPIRone 5 MG TABLET PO SCH ×3 (08:13→16:33)
[2020-03-11] MEDS: risperiDONE 1 MG TABLET PO SCH ×2 (08:13→16:33)
[2020-03-11] MEDS: ENOXAPARIN SODIUM 40 MG/0.4 ML DISP.SYRIN SQ SCH (08:15)
[2020-03-11 09:53] LABS: BASOPHILS % (AUTO) 0.5 % (0.0-2.0); EOSINOPHILS % (AUTO) 1.6 % (0.0-6.0); HEMATOCRIT 44 % (39-51); HEMOGLOBIN 14.7 g/dL (13.5-17.5); LYMPHOCYTES # (AUTO) 1.9 /CMM (0.8-4.8); LYMPHOCYTES % (AUTO) 29.9 % (20.0-44.0); MEAN CORPUSCULAR HGB CONC 33 g/dl (31.0-36.0); MEAN CORPUSCULAR VOLUME 85 fL (80-96); MONOCYTES # (AUTO) 0.6 /CMM (0.1-1.30); MONOCYTES % (AUTO) 9.8 % (2.0-12.0); NEUTROPHILS # (AUTO) 3.7 /CMM (1.8-8.9); NEUTROPHILS % (AUTO) 58.2 % (43.0-81.0); PLATELET COUNT (AUTO) 177 /CMM (150-450); RED BLOOD CELL COUNT(AUTO) 5.18 MIL/uL (4.5-6.0); WHITE BLOOD COUNT (AUTO) 6.3 K/uL (4.3-11.0)
[2020-03-11 10:19] LABS: CALCIUM, SERUM 8.8 mg/dL (8.5-10.1); CREATININE 0.6 mg/dL (0.6-1.3); PHOSPHORUS 3.7 mg/dL (2.5-4.9); POTASSIUM 3.8 mmol/L (3.5-5.1)
[2020-03-11 12:00] VITALS: BP 143/94
[2020-03-11 16:00] VITALS: BP 111/84
--- NOTE | 2020-03-11 19:30 | NUR ---
TELE/RN CLOSING NOTE Patient awake in bed, A&O x 3. No complaints of pain/discomfort at this time. Breathing even and non-labored on RA, no SOB noted. No cardiac distress noted. On tele monitor, reading SR. No IV access noted, patient refused iv insertion. Explained its risks and benefits, insists on refusal. Sensation from all peripheral extremities intact. Fall precautions maintained. Will endorse to night time babysitter nurse.
[2020-03-11 20:00] VITALS: BP 107/75
--- NOTE | 2020-03-11 20:00 | NUR ---
SERVICES ADVISOR NOTE PT IN BED AWAKE. A/O X 4, NO SOB, NO DISTRESS OR DISCOMFORT NOTED DENIES PAIN. ON REFUSING TELE MONITOR. PT IS AMBULATORY WITH A STEADY GAIT. PT WANTS TO GO HOME WORRYING ABOUT HIS WHO ALSO IN HOSPITAL. COOPERATIVE. PT HAS NO IV ACCESS, MD AWARE. ALL NEEDS ATTENDED. VSS. CONTINUE TO MONITOR HIM.
--- NOTE | 2020-03-11 22:20 | NUR ---
ACADEMIC AFFAIRS SPECIALIST NOTE COVID PCR SPECIMEN COLLECTED AND SENT TO LAB.
--- NOTE | 2020-03-12 07:02 | NUR ---
CUTTER V GROOVE NOTE PT IN BED ASLEEP, AROUSABLE. NO DISTRESS OR DISCOMFORT NOTED. DENIES PAIN. PT REMAIN ASKING WHEN HE IS GOING TO LEAVE THE HOSPITAL. REMINDED PT COVID RESULT IS PENDING. ALL NEEDS ATTENDED. WILL ENDORSE TO DAYS SHIFT NURSE FOR CONTINUE TO CARE.
--- NOTE | 2020-03-12 07:30 | NUR ---
ALTERATIONS TAILOR NOTES PT IN BED, AWAKE, ALERT AND ORIENTED, NO COMPLAINT OF PAIN OR ANY DISCOMFORT, RESPIRATIONS NORMAL AND UNLABORED, ON ROOM AIR WITH O2 SAT OF 99%, CALL LIGHT WITHIN REACH, NEEDS ATTENDED, NO BEHAVIOR PROBLEM NOTED AT THIS TIME.
[2020-03-12 08:00] VITALS: BP 131/79
[2020-03-12] MEDS: BLOOD SUGAR DIAGNOSTIC 1 EACH STRIP IN SCH ×4 (08:27→21:47)
[2020-03-12] MEDS: risperiDONE 1 MG TABLET PO SCH ×2 (08:27→16:41)
[2020-03-12] MEDS: busPIRone 5 MG TABLET PO SCH ×3 (08:27→16:41)
[2020-03-12] MEDS: NICOTINE PATCH (7MG) 7 MG PATCH.TD24 TD SCH (08:28)
[2020-03-12] MEDS: ENOXAPARIN SODIUM 40 MG/0.4 ML DISP.SYRIN SQ SCH (08:29)
--- NOTE | 2020-03-12 09:37 | NUR ---
Clinical Social Work Note Discussed cse with Dr Armstrong who feels patient is at baseline from a psychiatric point of view. Patient does not meet criterai d Addendum: 03/12/20 at 0946 by MARLEN CAMARENA Addendum to Clinical Social Work Note Patient does not meet criteria for acute psychiatric unit per Dr Armstrong. Patient needs to return home or to facility once he is medically stable. Patient has [facility] pending so it is unlikely that he can be placed in a nursing facility. Gipsy Assigned MEDICAL CERTIFICATION SPECIALIST will talk to the family regarding patient's return home once stable. Son is involved in patient's care. 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 He is at baseline from a psychiatric point of view per Dr Armstrong. Plan: Patient will need to return home or go to a setting such as [facility] if room available when pt is medically clear.
--- NOTE | 2020-03-12 11:46 | NUR ---
PHYSICS TECHNICAL OFFICER NOTES PT IN BED, AWAKE, ALERT AND ORIENTED, NO COMPLAINT OF PAIN, COMPLIANT WITH PO MEDS, RESPIRATIONS NORMAL, WALKS INSIDE HIS ROOM WITH STEADY GAIT, CALL LIGHT WITHIN REACH, NEEDS ATTENDED.
[2020-03-12 12:00] VITALS: BP 112/75
[2020-03-12 16:00] VITALS: BP 113/78
--- NOTE | 2020-03-12 18:10 | NUR ---
AIR BRUSH OPERATOR NOTES PT IN BED, RESTING, AWAKE, ALERT AND ORIENTED, DENIES PAIN, BREATHING PATTERN NORMAL, TOLERATES CURRENT DIET, PM MEDS GIVEN ORDERED, BS CHECKED, NO S/S OF HYPO/HYPERGLYCEMIA NOTED, ALL NEEDS ATTENDED.
[2020-03-12 20:00] VITALS: BP 112/69
--- NOTE | 2020-03-12 20:00 | NUR ---
RN OPENING NOTES RECEIVED PT IN BED. PT AT THIS TIME STILL REFUSES TELE MONITORING. ISOLATION PRECAUTIONS IN PLACE FOR COVID 19 +. PT CURRENTLY ON ROOM AIR. PT IS NOT IN RESPIRATORY DISTRESS OR HAVING SOB AT THIS TIME. TOLERATING NC, BREATHING IS EVEN AND UNLABORED AT THIS TIME, PT IS SATURATING WELL AT 97% NO IV SITE NOTED, PT STILL REFUSES ACCESS. PT DENIES PAIN AT THIS TIME, JUST REQUESTS TO SLEEP. SAFETY MEASURES IN PLACE. HOB ELEVATED. BED IS LOCKED IN LOWEST POSITION. SIDE RAILS UP X 2. CALL LIGHT WITHIN REACH. WILL CONTINUE TO MONITOR.
[2020-03-12] MEDS: INSULIN REGULAR, HUMAN 100 UNIT/ML 3 ML VIAL SQ PRN (22:17)
[2020-03-12 23:00] LABS: BASOPHILS % (AUTO) 0.5 % (0.0-2.0); EOSINOPHILS % (AUTO) 1.6 % (0.0-6.0); HEMATOCRIT 45 % (39-51); HEMOGLOBIN 14.6 g/dL (13.5-17.5); LYMPHOCYTES % (AUTO) 31.2 % (20.0-44.0); MEAN CORPUSCULAR HGB CONC 33 g/dl (31.0-36.0); MEAN CORPUSCULAR VOLUME 86 fL (80-96); MONOCYTES # (AUTO) 0.9 /CMM (0.1-1.30); MONOCYTES % (AUTO) 13.9 % (2.0-12.0); NEUTROPHILS # (AUTO) 3.4 /CMM (1.8-8.9); NEUTROPHILS % (AUTO) 52.8 % (43.0-81.0); PLATELET COUNT (AUTO) 187 /CMM (150-450); RED BLOOD CELL COUNT(AUTO) 5.21 MIL/uL (4.5-6.0); WHITE BLOOD COUNT (AUTO) 6.4 K/uL (4.3-11.0)
--- NOTE | 2020-03-12 23:10 | NUR ---
PT COOPERATIVE WITH ACCU CHECKS. BLOOD SUGAR WAS 205. INSULIN ADMINISTERED PER SLIDING SCALE.
[2020-03-12 23:13] LABS: CALCIUM, SERUM 8.7 mg/dL (8.5-10.1); CREATININE 0.7 mg/dL (0.6-1.3); MAGNESIUM 2.1 mg/dL (1.8-2.4); POTASSIUM 3.9 mmol/L (3.5-5.1)
[2020-03-13] VITALS: BP 135/76
--- NOTE | 2020-03-13 03:17 | NUR ---
UPON ROUNDS, PT IS SLEEPING AT THIS TIME. WILL CONTINUE TO MONITOR
[2020-03-13 04:00] VITALS: BP 110/67
--- NOTE | 2020-03-13 07:02 | NUR ---
RN CLOSING NOTES NO SIGNIFICANT CHANGES IN CONDITION THROUGHOUT THE NIGHT. TALKING TO DAUGHTER ON THE PHONE AT THIS TIME. PT CURRENTLY ON ROOM AIR. PT IS NOT IN RESPIRATORY DISTRESS OR HAVING SOB AT THIS TIME. BREATHING IS EVEN AND UNLABORED AT THIS TIME, PT IS SATURATING WELL AT 97%. PT DENIES PAIN AT THIS TIME, JUST REQUESTS TO SLEEP. SAFETY MEASURES IN PLACE. HOB ELEVATED. BED IS LOCKED IN LOWEST POSITION. SIDE RAILS UP X 2. CALL LIGHT WITHIN REACH. WILL ENDORSE TO AM NURSE FOR CONTINUATION OF CARE.
--- NOTE | 2020-03-13 07:50 | NUR ---
RN NOTES RECEIVED PT AWAKE, A/O X2-3, AMBULATORY. PT TOLERATING RA, WITH NO ACUTE RESPIRATORY DISTRESS. PT DENIES PAIN OR DISCOMFORT AT THIS TIME. PT CONCERNED OF WANTING TO GO HOME. NO IV ACCESS NOTED, MD AWARE AND PT PREFERS NOT TO HAVE ANYTHING INSERTED. PT KEPT COMFORTABLE. CALL LIGHT KEPT WITHIN REACH. PT'S BED IN LOWEST, LOCKED POSITION WITH SR X2. WILL CONTINUE PLAN OF CARE.
[2020-03-13 08:00] VITALS: BP 127/73
[2020-03-13] MEDS: NICOTINE PATCH (7MG) 7 MG PATCH.TD24 TD SCH (08:41)
[2020-03-13] MEDS: BLOOD SUGAR DIAGNOSTIC 1 EACH STRIP IN SCH ×4 (08:41→23:13)
[2020-03-13] MEDS: INSULIN REGULAR, HUMAN 100 UNIT/ML 3 ML VIAL SQ PRN ×3 (08:42→23:13)
[2020-03-13] MEDS: risperiDONE 1 MG TABLET PO SCH ×2 (08:43→16:54)
[2020-03-13] MEDS: busPIRone 5 MG TABLET PO SCH ×3 (08:43→16:54)
[2020-03-13] MEDS: ENOXAPARIN SODIUM 40 MG/0.4 ML DISP.SYRIN SQ SCH (08:44)
[2020-03-13 12:00] VITALS: BP 120/68
--- NOTE | 2020-03-13 13:12 | NUR ---
RN NOTES RECEIVED CALL FROM LAB, COVID 19 PCR RESULT IS POSITIVE. WILL NOTIFY HOSPITALIST/DT.
--- NOTE | 2020-03-13 13:27 | NUR ---
RN NOTES PER HOSPITALIST/DT, NO NEW ORDERS. PT MADE AWARE WELL.
[2020-03-13 16:00] VITALS: BP 102/72
--- NOTE | 2020-03-13 18:57 | NUR ---
RN NOTES PT REMAINS AWAKE, A/O X2-3, AMBULATORY. PT TOLERATING RA, WITH NO ACUTE RESPIRATORY DISTRESS. PT DENIES PAIN OR DISCOMFORT AT THIS TIME. NO IV ACCESS NOTED, MD AWARE AND PT PREFERS NOT TO HAVE ANYTHING INSERTED. ALL NEEDS AND CARE ATTENDED. PT KEPT COMFORTABLE. CALL LIGHT KEPT WITHIN REACH. PT'S BED IN LOWEST, LOCKED POSITION WITH SR X2. WILL ENDORSE TO INCOMING NIGHT NURSE FOR LEROY.
[2020-03-13 20:00] VITALS: BP 123/98
--- NOTE | 2020-03-13 20:40 | NUR ---
RN PM OPENING NOTES REPORT RECIEVED FROM JEAN CLAUDE DELGADO. PT REFUSING TO WEAR TELEMETRY MONITORING. PT AWAKE, A/O X2-3 GREEK SPEAKING, AMBULATORY. PT TOLERATING RA, DENIES SOB. PT DENIES PAIN OR DISCOMFORT AT THIS TIME. NO IV ACCESS PATIENT REFUSING NEW INSERTION PER REPORT AWARE. CALL LIGHT WITHIN REACH PT AMBULATORY, INDEPENDENT WITH ADL. BED IN LOW, LOCKED POSITION WITH SR X2. WILL CONT TO MONITOR.
[2020-03-14] VITALS: BP 124/98
[2020-03-14 04:00] VITALS: BP 114/82
--- NOTE | 2020-03-14 07:18 | NUR ---
UPPER CUTTER OUT NOTES PATIENT IN BED ALERT ORIENTED X 3. NO ACUTE DISTRESS NOTED. NO SOB NOTED. PATIENT REFUSED IV ACCESS, MD AWARE.PATIENT REFUSING CAUSTIC CRESYLATE SHIFT SUPERINTENDENT DESPITE OF EXPLANATION OF RISKS AND BENEFITS. HEAD OF BED ELEVATED. SAFETY MEASURES IN PLACE. CALL LIGHT WITHIN REACH. WILL CONTINUE TO MONITOR ACCORDINGLY.
[2020-03-14] MEDS: BLOOD SUGAR DIAGNOSTIC 1 EACH STRIP IN SCH ×4 (07:46→22:56)
[2020-03-14 08:00] VITALS: BP 138/79
[2020-03-14] MEDS: ENOXAPARIN SODIUM 40 MG/0.4 ML DISP.SYRIN SQ SCH (09:10)
[2020-03-14] MEDS: busPIRone 5 MG TABLET PO SCH ×3 (09:10→16:46)
[2020-03-14] MEDS: NICOTINE PATCH (7MG) 7 MG PATCH.TD24 TD SCH (09:11)
[2020-03-14] MEDS: risperiDONE 1 MG TABLET PO SCH ×2 (09:11→16:46)
--- NOTE | 2020-03-14 10:30 | NUR ---
INSTRUCTION LIBRARIAN NOTES PATIENT REFUSED BLOOD DRAW, NOTIFIED CHAIR CAR ATTENDANT BERTO DUMONT.
--- NOTE | 2020-03-14 15:01 | NUR ---
TITLE AGENT NOTES PATIENT SEEN AND EVALUATED BY MOOSE HUNTER BERTO YANES WITH NEW ORDER MADE, NOTED AND CARRIED OUT.
--- NOTE | 2020-03-14 16:01 | NUR ---
SW spoke with patient via hospital line. Patient reports he would like to go home. SW spoke to patient regarding discharge plan and patient stated his daughter Lady will pick him up. SW called Lady and Lady in agreement to picking supervisor patient and take proper COVID-19 precautions. Rental Representative remain available for all needs regarding this patient.
--- NOTE | 2020-03-14 16:52 | NUR ---
NICOL spoke with patient's son Jez [phone] regarding discharge plan that was made with patient's daughter Lady . Jez expressed frustration and this SW informed son Jez that the patient is alert and oriented x4 to agree to this discharge plan. Patient's daughter Lady will pick patient up from [facility] today 03/14. SW remains available for all needs regarding this patient.
[2020-03-14] MEDS: INSULIN REGULAR, HUMAN 100 UNIT/ML 3 ML VIAL SQ PRN ×2 (18:13→22:53)
--- NOTE | 2020-03-14 18:48 | NUR ---
INTERNATIONAL PROJECT ENGINEER NOTES PATIENT IN BED ALERT ORIENTED X 3. NO ACUTE DISTRESS NOTED. NO SOB NOTED. PATIENT REFUSED IV ACCESS, CORRECTIONS UNIT SUPERVISOR BERTO YANES AWARE. HEAD OF BED ELEVATED. NEEDS ATTENDED AND ANTICIPATED. SAFETY MEASURES IN PLACE. CALL LIGHT WITHIN REACH. PATIENT FOR DISCHARGE, AWAITING FOR DAUGHTER YENNY FOR CORRECTIONAL MAINTENANCE TECHNICIAN ,WILL ENDORSE TO NIGHT NURSE FOR CONTINUITY OF CARE AND DISCHARGE.
--- NOTE | 2020-03-14 19:05 | NUR ---
CLOSET BUILDER: CONTINUITY OF CARE Patient in bed awake, A/O x2. No IV peripheral line, MD aware per report. Uncooperative with care, refused to be cleaned, irritable behavior. Unable to monitor rhythm, patient refused leads to be placed in his chest, declined education. No c/o chest pain, no cough, denies shortness of breath. Patient to be dc today per report. Maintained contact, droplet isolation with eye shield protection.
--- NOTE | 2020-03-14 19:48 | NUR ---
DRYWALL HANGER: FAMILY REFUSING DC Called Jez,son stating his father cannot be discharged to his home right now and refusing to take his father home, per son he already spoke with the CM regarding this issue. Son stating his father needs to be seen by Psych doctor first before discharging home. Informed Bryce/evening or night nurse supervisor of possible cancelled DC. Will informed .
[2020-03-14 20:00] VITALS: BP 110/80
[2020-03-14 20:15] VITALS: BP 115/66
--- NOTE | 2020-03-14 20:41 | NUR ---
OYSTER SHUCKER: REFUSED BLOOD DRAW 3RD TIME Provided education with length of time, patient continuous to refused, declined education.
--- NOTE | 2020-03-14 22:53 | NUR ---
HAZMAT CDL DRIVER: ACCU-CHEK Blood Glucose 131mg/dl given 2units insulin per ISS parameters co-signed with SANDY Mcarthur.
[2020-03-14 23:16] LABS: BASOPHILS % (AUTO) 0.5 % (0.0-2.0); EOSINOPHILS % (AUTO) 1.8 % (0.0-6.0); HEMATOCRIT 45 % (39-51); HEMOGLOBIN 14.8 g/dL (13.5-17.5); LYMPHOCYTES # (AUTO) 2.5 /CMM (0.8-4.8); MEAN CORPUSCULAR HGB CONC 33 g/dl (31.0-36.0); MEAN CORPUSCULAR VOLUME 86 fL (80-96); MONOCYTES # (AUTO) 0.7 /CMM (0.1-1.30); MONOCYTES % (AUTO) 11.2 % (2.0-12.0); NEUTROPHILS # (AUTO) 2.9 /CMM (1.8-8.9); NEUTROPHILS % (AUTO) 46.5 % (43.0-81.0); PLATELET COUNT (AUTO) 196 /CMM (150-450); RED BLOOD CELL COUNT(AUTO) 5.25 MIL/uL (4.5-6.0); WHITE BLOOD COUNT (AUTO) 6.3 K/uL (4.3-11.0)
[2020-03-14 23:27] LABS: CALCIUM, SERUM 8.9 mg/dL (8.5-10.1); CREATININE 0.7 mg/dL (0.6-1.3); POTASSIUM 4.3 mmol/L (3.5-5.1)
[2020-03-15] VITALS: BP 135/75
[2020-03-15 04:00] VITALS: BP 109/69
--- NOTE | 2020-03-15 06:35 | NUR ---
INFLATABLE BUILDINGS LAMINATOR: END OF SHIFT REPORT Patient remains uncooperative, irritable and moods changes behavior. Tolerating on room air, denies chest pain, no cough. Afebrile. Slept most of the night. Maintained contact, droplet isolation with eye shield protection. Pending dc, son refusing to take patient home, requested psych to see patient (seen by Dr. Armstrong/Psych 03/12/20, no input plan) and medication for home intake. Dr. Guadalupe informed. Will endorse to oncoming RN.
[2020-03-15] MEDS: BLOOD SUGAR DIAGNOSTIC 1 EACH STRIP IN SCH ×3 (06:49→17:30)
[2020-03-15] MEDS: INSULIN REGULAR, HUMAN 100 UNIT/ML 3 ML VIAL SQ PRN (06:50)
--- NOTE | 2020-03-15 06:51 | NUR ---
SENIOR BUSINESS DEVELOPMENT MANAGER: ACCU-CHEK Blood Glucose 105mg/dl. Parameters not met, no insulin given.
--- NOTE | 2020-03-15 07:40 | NUR ---
ms rn received on bed, awake,alert,oriented x 2-3,not in any form of distress, respirations even and unlabored,no sob noted, lungs are clear,abdomen soft,positive bowel sounds, denies pain at this time, pending d/c since yesterday,all needs attended.
[2020-03-15 08:00] VITALS: BP 110/71
--- NOTE | 2020-03-15 09:57 | NUR ---
SW spoke with the patient via hospital line as patient is on isolation per COVID-19 protocols. Patient reported that he is eager to go home and stated that the patient's daughter Lady is picking him up. SW called Lady and left voicemail as Lady was unavailable. SW to attempt to speak to Lady again at a later time.
--- NOTE | 2020-03-15 10:00 | NUR ---
ms [place] breakfast served,due meds given,tolerated well.
[2020-03-15] MEDS: risperiDONE 1 MG TABLET PO SCH ×2 (10:54→17:41)
[2020-03-15] MEDS: busPIRone 5 MG TABLET PO SCH ×3 (10:55→17:42)
[2020-03-15] MEDS: NICOTINE PATCH (7MG) 7 MG PATCH.TD24 TD SCH (10:55)
[2020-03-15] MEDS: ENOXAPARIN SODIUM 40 MG/0.4 ML DISP.SYRIN SQ SCH (10:57)
--- NOTE | 2020-03-15 11:00 | NUR ---
ms rn suppost to go home today, waiting for monique's meds prescription.
--- NOTE | 2020-03-15 11:28 | NUR ---
Patient confirmed with this SW that the patient will be picked up by daughter Lady . SW notified SANDY Lin and Case Management team regarding discharge plan.
--- NOTE | 2020-03-15 12:00 | NUR ---
ms rn was seen bu monique fnps w/ orders and prescription to go home, called daughter, but no one is answering phone. kenneth outpatient pharmacy manager made aware.
[2020-03-15 13:00] VITALS: BP 103/70
--- NOTE | 2020-03-15 13:40 | NUR ---
NICOL spoke with Daughter Dorothy regarding patient's discharge plan. Dorothy informed this SW that she would speak with family members for the patient to be picked. SW awaiting call back.
--- NOTE | 2020-03-15 14:00 | NUR ---
ms rn called son for excelsior picker. son will be here tonight between 9-10pm
--- NOTE | 2020-03-15 14:05 | NUR ---
NICOL attempted to speak with Lady patient's daughter . NICOL left voicemail with call back number.
--- NOTE | 2020-03-15 15:15 | NUR ---
SW spoke with patient's son Jez . Jez expressed wanting patient to be given a different prescription, SW informed Jez that patient will be given prescription from his primary physician at [facility] and if Jez (son) would like a different opinion that the patient would have to follow-up out patient. SW asked Jez (son) to arrange for transportation as patient has been cleared for discharge. Jez (son) stated that he will come cherry picker operator the patient at 10pm. SW asked Jez (son) to arrange for additional transportation as [facility] cannot keep him in the hospital for a longer period of time. Jez (son) became verbally aggressive with this SW over the phone and hung up. Plan: NICOL following up with patient and patient's daughters Lady and Dorothy.
[2020-03-15 16:00] VITALS: BP 107/68
--- NOTE | 2020-03-15 16:40 | NUR ---
ms rn on bed, no distress noted.
--- NOTE | 2020-03-15 18:30 | NUR ---
ms rn patient transportation came to picking machine operator helper but son was already at the lobby, patient ended up w/ son, prescription given,all needs attended.
== END 2020-03-15 18:20 | disposition home or self-care (01) | DRG 137 ==
LOC: ER 01:05 → MEDSG2 02:58 → EDBD 02:58 → TELE2 20:53
PROVIDERS: ATTEND Nurse Practitioner Acute Care
DX: U07.1 COVID-19 (principal); G93.41 Metabolic encephalopathy; R73.9 Hyperglycemia, unspecified; F03.91 Unspecified dementia, unspecified severity, with behavioral disturbance; F31.9 Bipolar disorder, unspecified; F29 Unspecified psychosis not due to a substance or known physiological condition; F23 Brief psychotic disorder; R03.0 Elevated blood-pressure reading, without diagnosis of hypertension; Z91.19 Patient's noncompliance with other medical treatment and regimen; F10.97 Alcohol use, unspecified with alcohol-induced persisting dementia; Y90.0 Blood alcohol level of less than 20 mg/100 ml
CPT/HCPCS: 36415; 71045-TC; 80048-TC; 80053-TC; 80076-TC; 82248-TC; 82728-TC; 82962-TC; 83605-TC; 83615-TC; 83735-TC; 84100-TC; 85025-TC; 85378-TC; 86140-TC; 87081-TC; C9803; G0378; G0480; J1650; J1815; J2060; J3490; U0003